=== PATIENT | male | born 1955 | race Caucasian/White ===

== ENCOUNTER → 2017-12-21 | Outpatient (CLI) | payer OTHER | END | disposition home or self-care (01) | LOC: CFH 07:07 | PROVIDERS: ATTEND Nurse Practitioner | DX: M43.06 Spondylolysis, lumbar region (principal); M51.26 Other intervertebral disc displacement, lumbar region; M48.061 Spinal stenosis, lumbar region without neurogenic claudication | CPT/HCPCS: 72148 ==

== ENCOUNTER → 2019-04-02 | Outpatient (CLI) | payer OTHER | END | disposition home or self-care (01) | LOC: CVU 07:07 | PROVIDERS: ATTEND Internal Medicine Cardiovascular Disease | DX: I70.0 Atherosclerosis of aorta (principal); I10 Essential (primary) hypertension; R06.02 Shortness of breath; E78.2 Mixed hyperlipidemia; F17.200 Nicotine dependence, unspecified, uncomplicated | CPT/HCPCS: 93306; 93356; 93880; 93978; 94060; 94726; 94729 ==

== ENCOUNTER → 2019-05-02 | Outpatient (CLI) | payer OTHER | END | disposition home or self-care (01) | LOC: CFH 07:34 | PROVIDERS: ATTEND Internal Medicine Cardiovascular Disease | DX: I10 Essential (primary) hypertension (principal); R06.02 Shortness of breath; E78.2 Mixed hyperlipidemia; F17.200 Nicotine dependence, unspecified, uncomplicated | CPT/HCPCS: 78452; 93017; A9502 ==